=== PATIENT | female | born 1990 | race Caucasian/White ===

== ENCOUNTER 2018-08-08 12:24 | Emergency (ER) | payer BC ==
[2018-08-08 13:34] VITALS: BP 119/80
--- NOTE | 2018-08-08 13:53 | UC ---
General HPI - HPI Summary HPI Summary: PT FOUND A TICK ON HER R THIGH YESTERDAY. SHE TRIED TO BRUSH IT OFF AND IT WOULD NOT FALL OFF WHICH IS WHEN SHE REALIZED IT WAS A TICK. SHE WAS FINALLY ABLE TO GET IT OFF AND CLEANED THE SITE. NO RASH, FEVER, JOINT PAINS. DURATION OF BITE IS NOT KNOWN. - History of Current Complaint Chief Complaint: [employer] Stated Complaint: TICK BITE Time Seen by Provider: 08/08/18 13:39 Hx Obtained From: Patient Hx Last Menstrual Period: 07/24/18 Pain Intensity: 0 Associated Signs & Symptoms: Negative: Fever - Allergy/Home Medications Allergies/Adverse Reactions: Allergies Allergy/AdvReac Type Severity Reaction Status Date / Time amoxicillin Allergy Unknown Verified 08/08/18 13:27 Reaction Details cefaclor [From Ceclor] Allergy See Comment Verified 08/08/18 13:27 erythromycin base Allergy Unknown Verified 08/08/18 13:27 Reaction Details Home Medications: Home Medications Alpha Crs 1 tab PO DAILY 08/08/18 [History Confirmed 08/08/18] Microplex Vmz 1 tab PO DAILY 08/08/18 [History Confirmed 08/08/18] Multivitamin [Multivitamins] 1 cap PO DAILY 08/08/18 [History Confirmed 08/08/18 ] Tri-Ease 1 tab PO DAILY 08/08/18 [History Confirmed 08/08/18] Xeo Rafael 1 tab PO DAILY 08/08/18 [History Confirmed 08/08/18] PMH/Surg Hx/FS Hx/Imm Hx Previously Healthy: Yes - Surgical History Surgical History: Yes Surgery Procedure, Year, and Place: opening of block tear duct - Family History Known Family History: Positive: Non-Contributory - Social History Alcohol Use: None Substance Use Type: None Smoking Status (MU): Never Smoked Tobacco Review of Systems All Other Systems Reviewed And Are Negative: Yes Constitutional: Negative: Fever Skin: Negative: Rash Musculoskeletal: Negative: Arthralgia Physical Exam Triage Information Reviewed: Yes Appearance: Well-Appearing Vital Signs: Initial Vital Signs Temp 98.7 F 08/08/18 13:31 Pulse 87 08/08/18 13:31 Resp 20 08/08/18 13:31 BP 119/80 08/08/18 13:31 Pulse Ox 99 08/08/18 13:31 Vital Signs Reviewed: Yes Eyes: Positive: Conjunctiva Clear Neck: Positive: Supple Respiratory: Positive: Lungs clear Cardiovascular: Positive: RRR Abdomen Description: Positive: Nontender Musculoskeletal: Positive: ROM Intact Neurological: Positive: Alert Psychological: Positive: Age Appropriate Behavior Skin Exam: Normal Course/Dx - Diagnoses Provider Diagnosis: Tick bite Discharge - Sign-Out/Discharge Documenting (check all that apply): Patient Departure All imaging exams completed and their final reports reviewed: No Studies - Discharge Plan Condition: Stable Disposition: HOME Prescriptions: DOXYcycline CAP(*) [DOXYcycline 100MG CAP(*)] 100 mg PO DAILY 1 Days #2 cap Patient Education Materials: Tick Bite (ED) Referrals: Soo Hampton NP [Primary Care Provider] - If Needed - Billing Disposition and Condition Condition: STABLE Disposition: Home - Attestation Statements Provider Attestation: Chart reviewed. I was available for consult. I did not see nor disposition this patient.
== END 2018-08-08 14:32 | disposition home or self-care (01) ==
LOC: UCCORT 12:24
DX: S70.361A Insect bite (nonvenomous), right thigh, initial encounter (principal); Z88.0 Allergy status to penicillin; Z88.1 Allergy status to other antibiotic agents; X58.XXXA Exposure to other specified factors, initial encounter
CPT/HCPCS: 99202; G0463